=== PATIENT | female | born 1990 | race African-American/Black ===

== ENCOUNTER 2022-03-18 17:06 | Observation (INO) | payer MEDICAID ==
[~2022-03-18 17:06] MED LIST: AUG500; DEPOPROVERA; PRED1TAB
[2022-03-18] MEDS ORDERED: TOPUD MT (21:16)
[2022-03-19] MEDS ORDERED: PNV1CAPS46 PO (00:25)
[2022-03-19] MEDS ORDERED: MICO24CM2 VG (00:25)
== END 2022-03-18 17:10 | disposition home or self-care (01) ==
LOC: 8 EST A/PP 17:06
PROVIDERS: ADMIT Specialist; ATTEND Specialist
DX: O26.893 Other specified pregnancy related conditions, third trimester (principal); R10.9 Unspecified abdominal pain; M54.2 Cervicalgia; O99.891 Other specified diseases and conditions complicating pregnancy; M54.9 Dorsalgia, unspecified; Z3A.31 31 weeks gestation of pregnancy
CPT/HCPCS: G0378

== ENCOUNTER 2022-03-18 17:17 | Emergency (ER) | payer MEDICAID ==
[~2022-03-18] VITALS: Ht 165.1 cm; Wt 86.0 kg
[2022-03-18] MEDS ORDERED: ACETAMINOPHEN 325MG TABLET PO ONE (18:30)
[2022-03-18 18:57] LABS: BASOPHILS % 0.3 % (0.0-2.0); EOSINOPHILS % 0.7 % (0.0-5.0); HEMATOCRIT. 35.1 % (36.0-48.0); HEMOGLOBIN. 11.6 g/dL (12.0-16.0); LYMPHOCYTES % 21.2 % (20.0-50.0); MEAN CORPUSCULAR HEMOGLOBIN 29.4 pg (28.0-32.0); MEAN CORPUSCULAR VOLUME 88.8 fL (81.0-99.0); MEAN PLATELET VOLUME 9.1 fl (7.4-10.4); MONOCYTES % 8.8 % (2.0-8.0); PLATELET 289 x1000/uL (130-400); RED BLOOD CELL COUNT 3.95 mill/uL (4.2-5.4); RED CELL DISTRIBUTION WIDTH 13.2 % (11.6-14.6)
[2022-03-18 19:03] LABS: CHLORIDE 106 mEq/L (98-107)
[2022-03-18 19:27] LABS: B-HCG QUANTITATIVE 8058 mIU/mL (<3)
[2022-03-18] MEDS ORDERED: TOPUD MT (21:16)
[2022-03-18 22:35] VITALS: BP 121/71
[2022-03-19] MEDS ORDERED: MICO24CM2 VG (00:25)
[2022-03-19] MEDS ORDERED: PNV1CAPS46 PO (00:25)
== END 2022-03-18 22:36 | disposition home or self-care (01) ==
LOC: ER 17:17
DX: O26.893 Other specified pregnancy related conditions, third trimester (principal); M25.572 Pain in left ankle and joints of left foot; M54.2 Cervicalgia; R10.9 Unspecified abdominal pain; O24.913 Unspecified diabetes mellitus in pregnancy, third trimester; J45.909 Unspecified asthma, uncomplicated; Z3A.32 32 weeks gestation of pregnancy; W01.0XXA Fall on same level from slipping, tripping and stumbling without subsequent striking against object, initial encounter; Y93.89 Activity, other specified; Y92.018 Other place in single-family (private) house as the place of occurrence of the external cause
CPT/HCPCS: 36415; 76805; 80053; 84702; 85025; 99284

== ENCOUNTER 2022-03-18 22:44 | Observation (INO) | payer MEDICAID ==
[~2022-03-18] VITALS: Ht 175.3 cm; Wt 87.1 kg
[~2022-03-18 22:44] MED LIST changes: +TOPUD MT
[2022-03-19] MEDS ORDERED: MICO24CM2 VG (00:25)
[2022-03-19] MEDS ORDERED: PNV1CAPS46 PO (00:25)
[2022-03-19] MEDS: LACTATED RINGERS 1,000 ML IV SCH ×3 (00:44→03:18)
[2022-03-19] MEDS: TERBUTALINE SULFATE 1MG/ML VIAL SUBCUT SCH ×2 (00:53→02:15)
[2022-03-19 01:58] LABS: CHLORIDE 106 mEq/L (98-107)
[2022-03-19 02:18] LABS: CLARITY URINE CLEAR (CLEAR); COLOR URINE YELLOW (YELLOW); KETONES URINE NEGATIVE (NEGATIVE); LEUKOCYTE ESTERASE URINE NEGATIVE (NEGATIVE); NITRITE URINE NEGATIVE (NEGATIVE); OCCULT BLOOD URINE NEGATIVE (NEGATIVE); PROTEIN URINE NEGATIVE (NEGATIVE)
[2022-03-19] MEDS ORDERED: ACETAMINOPHEN 500MG TABLET PO SCH (03:00)
== END 2022-03-19 03:40 | disposition home or self-care (01) ==
LOC: 8 EST LDRP 22:44
PROVIDERS: ADMIT Obstetrics & Gynecology; ATTEND Obstetrics & Gynecology
DX: O99.891 Other specified diseases and conditions complicating pregnancy (principal); M54.50 Low back pain, unspecified; R10.30 Lower abdominal pain, unspecified; O62.9 Abnormality of forces of labor, unspecified; Z3A.32 32 weeks gestation of pregnancy
CPT/HCPCS: 36415; 59025; 80053; 81003; 96360; 96361; 96372; G0378; J3105; 99281